=== PATIENT | male | born 1965 | race Caucasian/White ===

== ENCOUNTER 2018-03-02 13:14 | Emergency (ER) | payer SELFPAY ==
[2018-03-02 14:03] VITALS: BP 125/76
--- NOTE | 2018-03-02 14:20 | UC ---
Dental HPI - HPI Summary HPI Summary: 52-year-old male comes in to clinic today with a complaint of left neck swelling. Patient had some left lower dental pain starting about 3 days ago. Saw his dentist and he diagnosed him with a dental infection and started on penicillin. Patient started the penicillin yesterday at midday. His had one days worth of dosing. The swelling is increasing even though he is on the penicillin. It hurts to swallow. He has been able take the pills he has been able to drink water. Recently he did gag on some of the water. Denies any airway compromise at this time. No fevers. Ibuprofen is no longer helping with the pain. - History of Current Complaint Chief Complaint: UCDentalProblem Stated Complaint: DENTAL PAIN Time Seen by Provider: 03/02/18 14:03 Pain Intensity: 10 - Allergies/Home Medications Allergies/Adverse Reactions: Allergies Allergy/AdvReac Type Severity Reaction Status Date / Time No Known Allergies Allergy Verified 03/02/18 13:55 Home Medications: Home Medications Penicillin VK TAB* [Penicillin VK 250 mg Tab*] 500 mg PO QID 03/02/18 [History Confirmed 03/02/18] PMH/Surg Hx/FS Hx/Imm Hx Previously Healthy: Yes - Surgical History Surgical History: Yes Surgery Procedure, Year, and Place: 20 YRS AGO RIGHT KNEE, [facility]. LEFT EYE CATARAC REMOVED 2014 - Family History Known Family History: Negative: Diabetes - Social History Alcohol Use: Occasionally Alcohol Amount: 3-4 PER WEEK Substance Use Type: None Smoking Status (MU): Heavy Every Day Tobacco Smoker Amount Used/How Often: PACK A DAY Have You Smoked in the Last Year: Yes When Did the Patient Quit Smoking/Using Tobacco: 05/03/15 Household Exposure Type: Cigarettes Review of Systems Constitutional: Negative Skin: Negative Eyes: Negative ENT: Dental Pain - SEE HPI Respiratory: Negative Cardiovascular: Negative Gastrointestinal: Negative Motor: Negative Neurovascular: Negative Musculoskeletal: Negative Neurological: Negative Psychological: Negative Is Patient Immunocompromised?: No All Other Systems Reviewed And Are Negative: Yes Physical Exam Triage Information Reviewed: Yes Appearance: Well-Appearing, Well-Nourished, Pain Distress - MILD Vital Signs: Initial Vital Signs Temp 97.6 F 03/02/18 13:56 Pulse 94 03/02/18 13:56 Resp 20 03/02/18 13:56 BP 125/76 03/02/18 13:56 Pulse Ox 100 03/02/18 13:56 Vital Signs Reviewed: Yes Eye Exam: Normal Eyes: Positive: Conjunctiva Clear ENT: Positive: Pharynx normal, Uvula midline - No peritonsillar swelling oral pharynx is open. Dental: Positive: Other: - Patient has gingival swelling in the left lower molar. He has a left-sided submandibular swelling that is tender to palpation. His voice is normal. Neck: Positive: Supple Respiratory: Positive: Lungs clear, Normal breath sounds, No respiratory distress, Other: - No evidence of airway compromise at this time. Cardiovascular: Positive: RRR Musculoskeletal Exam: Normal Musculoskeletal: Positive: Strength Intact Neurological Exam: Normal Neurological: Positive: Alert, Muscle Tone Normal Psychological Exam: Normal Psychological: Positive: Normal Response To Family, Age Appropriate Behavior Skin Exam: Normal Dental Complaint Course/Dx - Course Course Of Treatment: At this time the patient airway is open and uncompromised. We discussed further evaluation and treatment in the emergency department. At this time he prefers to switch antibiotics and see if that helps. If he gets any worse to go to the emergency department. - Differential Dx/Diagnosis Provider Diagnoses: DENTAL ABSCESS Discharge - Sign-Out/Discharge Documenting (check all that apply): Patient Departure All imaging exams completed and their final reports reviewed: No Studies - Discharge Plan Condition: Stable Disposition: HOME Prescriptions: Clindamycin Cap(NF) [Clindamycin Cap 300 mg Cap(NF)] 300 mg PO Q6H #40 cap HYDROcodone/ACETAMIN 5-325 MG* [[place] 5-325 TAB*] 1 tab PO Q4H PRN #15 tab MDD 6 PRN Reason: Pain Patient Education Materials: Dental Abscess (ED) Referrals: [facility] [place] [facility] REFERRAL [Outside] Additional Instructions: FOLLOW UP WITH YOUR DENTIST. GO TO THE EMERGENCY DEPARTMENT FOR ANY WORSENING OF YOUR CONDITION; DIFFICULTY BREATHING OR SWALLOWING, YOU FEEL ILL OR QUESTIONS OR CONCERNS. - Billing Disposition and Condition Condition: STABLE Disposition: Home
== END 2018-03-02 14:29 | disposition home or self-care (01) ==
LOC: UCCORT 13:14
DX: K04.7 Periapical abscess without sinus (principal); F17.210 Nicotine dependence, cigarettes, uncomplicated; Z79.2 Long term (current) use of antibiotics
CPT/HCPCS: 99212; G0463